=== PATIENT | female | born 1985 | race Caucasian/White ===

== ENCOUNTER 2018-06-19 09:33 | Inpatient (IN) ==
[~2018-06-19 09:33] MED LIST: *HR* Nalbuphine 10 MG/ML AMPUL IVP PRN; Famotidine 20 MG/2 ML VIAL IVP PRN; Lidocaine 1% 20 ML MDV INFILT PRN; Metoclopramide 10 MG/2 ML VIAL IVP PRN; Naloxone 0.4 MG/ML INJ IVP PRN; Ondansetron 4 MG/2 ML VIAL IVP PRN; Penicillin G Potassium 5,000,000 UNIT in D5% in Water (Mini-Bag+) 100 ML IVPB ONE
[2018-06-19] MEDS ORDERED: Ringers Solution, Lactated 1,000 ML IVC SCH (09:45)
[2018-06-19 10:24] LABS: Basophils # 0.1 K/mcL (0.0-0.2); Basophils % 0.6 %; Eosinophils # 0.1 K/mcL (0.0-0.6); Eosinophils % 1.1 %; Hematocrit 30.8 % (35.3-44.9); Hemoglobin 10.3 g/dL (11.5-15.4); Immature Granulocytes % 0.7 % (0-4); Lymphocytes # 2.4 K/mcL (0.6-4.6); Lymphocytes % 19.1 %; Mean Corpuscular HGB Conc 33.4 g/dL (31.6-35.5); Mean Corpuscular Hemoglobin 27.8 pg (28.0-33.3); Mean Corpuscular Volume 83.2 fL (83.0-100.0); Mean Platelet Volume 11.1 fL (9.4-12.4); Monocytes # 0.6 K/mcL (0.0-1.3); Monocytes % 4.6 %; Neutrophils # 9.2 K/mcL (1.6-8.9); Platelet Count 314 K/mcL (140-400); Red Cell Distribution Width 13.9 % (11.5-14.5); Segmented Neutrophils % 73.9 %
--- NOTE | 2018-06-19 10:30 | Anesthesia Evaluation PreOp ---
Addendum entered and electronically signed by Frankie Phillip CRNA 06/19/18 10:59: All Lab Results (24 Hours) 06/19/18 Range/Units 10:00 WBC 12.4 H (4.3-11.1) K/mcL RBC 3.70 L (3.82-4.97) M/mcL Hgb 10.3 L (11.5-15.4) g/dL Hct 30.8 L (35.3-44.9) % MCV 83.2 (83.0-100.0) fL MCH 27.8 L (28.0-33.3) pg MCHC 33.4 (31.6-35.5) g/dL RDW 13.9 (11.5-14.5) % Plt Count 314 (140-400) K/mcL MPV 11.1 (9.4-12.4) fL Immature Gran % 0.7 (0-4) % Seg Neutrophils % 73.9 % Lymphocytes % 19.1 % Monocytes % 4.6 % Eosinophils % 1.1 % Basophils % 0.6 % Neutrophils # 9.2 H (1.6-8.9) K/mcL Lymphocytes # 2.4 (0.6-4.6) K/mcL Monocytes # 0.6 (0.0-1.3) K/mcL Eosinophils # 0.1 (0.0-0.6) K/mcL Basophils # 0.1 (0.0-0.2) K/mcL Original Note: Date of Encounter: 06/19/18 Time of Encounter: 10:25 - Past History Planned Operation: ASHOK Cardiac History: Denies any Significant Hx Pulmonary History: Smoker, Pack/yr (5pk/yr) Other Medical History: GERD Anesthesia History: No Prior Anesthetic Complications, Past Anesthesia (Previous epidural x 2 with blood patch x2. No general anesthetics in history. No family history of anesthesia complications.) : Yes Alcohol Use: none Drug use: opiates, other (subutex use) Medications and Allergies Subutex 8 mg PO BID 06/19/18 [History] Allergy/AdvReac Type Severity Reaction Status Date / Time sulfamethoxazole Allergy Rash Verified 06/19/18 09:27 [From Bactrim] trimethoprim [From Bactrim] Allergy Rash Verified 06/19/18 09:27 - Meds/Allergy Pre-op Review Medications Reviewed: Yes Allergies Reviewed: Yes Beta Blockers on Current Med List: No Anesthesia Exam BP 132/85 P 82 R 16 T 97.6 Height: 5'6" NPO (# of Hours): 85.1kg Pain Scale: 5 Pain Scale Used: Numeric (1 - 10) - HEENT Pupil (Motor): Pupils equal Mallampati: II Teeth: Normal Oral Opening: Greater than 3 - PLUMBING ENGINEERING DRAFTSPERSON LOC: Oriented PLUMBING ENGINEERING DRAFTSPERSON Motor: Normal RUE, Normal LUE, Normal RLE, Normal LLE, Normal Face PLUMBING ENGINEERING DRAFTSPERSON Sensory: Normal: RUE, LUE, RLE, LLE, Face - Cardiac Rhythm: Regular Murmur: None JVD: No Carotid Bruit: No - Pulmonary Breath Sounds: bilateral Clear Respiratory Effort: Symmetrical Anesthesia Assess/Plan ASA Score: 2 Level of consciousness: Cooperative, Oriented, Tranquil Anesthetic Plan: Epidural Autologous Blood: No Monitoring Plan: Standard Monitors Recovery Plan: Other
[2018-06-19] MEDS ORDERED: *HR* FentaNYL (PF) 100 MCG/2 ML VIAL EP ONE (11:01)
[2018-06-19] MEDS ORDERED: Ondansetron 4 MG/2 ML VIAL IVP PRN (11:01)
[2018-06-19] MEDS ORDERED: Naloxone 0.4 MG/ML INJ IVP PRN (11:01)
[2018-06-19] MEDS ORDERED: EPHEDrine 50 MG/ML VIAL IVP PRN (11:01)
[2018-06-19] MEDS ORDERED: *HR* Ropivacaine/PF 0.2% 20 ML VIAL EP ONE (11:01)
[2018-06-19] MEDS ORDERED: *HR* FentaNYL (PF) 100 MCG/2 ML VIAL ONE (11:05)
[2018-06-19] MEDS ORDERED: *HR* Ropivacaine/PF 0.2% 20 ML VIAL ONE (11:06)
[2018-06-19] MEDS ORDERED: Lidocaine -MPF 1% 5 ML AMPUL ONE (11:06)
[2018-06-19] MEDS ORDERED: Epidural Premix (fent/bupiv) 110 ML EP SCH (11:15)
--- NOTE | 2018-06-19 11:48 | Anesthesia Procedures ---
Date of Encounter: 06/19/18 Time of Encounter: 11:13 Procedures: Anesthesia - Epidural/Spinal Patient ID/Chart reviewed: Yes Patient examined: Yes OB Eval: Gestational age: 38 OB Eval: : 6 OB Eval: Hx Para: 5 OB Eval: Dilated at (cm): 5 OB Eval: Contractions: Non-stressed pattern Consent Obtained: Yes Supplemental Oxygen: None/Room Air Site Prep: Aseptic Technique, Sterile prep and drape, Povidone-Iodine 1% Patient position: upright Local Anesthetic: Lidocaine 1% Amount of Local Anesthetic used: 3 Touhy Needle Gauge: 18 Catheter Depth at Skin (cm): 5 Test Dose (1.5% Lido + Epi): Volume given (mls): 3 Test Dose Result: Negative Loading Dose: Fentanyl (mcg): 100 Loading Dose: Other: Ropivicaine 0.2% 5ml NS 2ml Loading Dose Administered: Thru Catheter Infusion Rate (mls/hr): [address]: Tegaderm, Tape Interspace Used: L3-L4 Loss of Resistance (LEENA): Yes Blood: No CSF: No Paresthesia: No Procedure: ASHOK placed 1st pass in upright position. LEENA achieved with normal saline. Catheter threaded with ease to 14cm at skin. VSS throughout. Vitals + FHT's: 1113 BP 115/57 P 79 R 16 1138 BP 124/62 P 75 R 16 FHT 140s
[2018-06-19] MEDS ORDERED: Penicillin G Potassium 2,500,000 UNIT in 0.9 % Sodium Chloride 100 ML IVPB SCH (12:00)
[2018-06-19] MEDS ORDERED: Oxytocin 20 units/ LR 1000 mL 20 UNIT/1,000 ML BAG IVC ONE (12:18)
[2018-06-19 12:57] LABS: Amphetamine Screen,Urine Positive ng/mL (Cutoff=1000); Barbiturate Screen,Urine Negative ng/mL (Cutoff=200); Benzodiazepines Screen,Urine Negative ng/mL (Cutoff=200); Cannabinoid Screen,Urine Negative ng/mL (Cutoff = 50); Cocaine Screen,Urine Negative ng/mL (Cutoff= 300); Opiate Screen,Urine Negative ng/mL (Cutoff=300); Phencyclidine Screen,Urine Negative ng/mL (Cutoff=25)
--- NOTE | 2018-06-19 13:06 | OB/GYN History & Physical ---
Date of Encounter: 06/19/18 Time of Encounter: 13:00 Assessment and Plan (1) 38 weeks gestation of Current visit: Yes Status: Acute (2) Type A blood, Rh negative Current visit: Yes Status: Acute Cord blood to be collected at delivery (3) SROM (spontaneous rupture of membranes) Current visit: Yes Status: Acute Continue to monitor for color changes (4) Intrauterine Current visit: Yes Status: Acute (5) Active labor at term Current visit: Yes Status: Acute Admit to L&D for observation of labor Expectant management Labs-CBC and clot to hold Continuous electronic monitoring Pain management plan is epidural-may have upon request GBS unknown-routine prophylaxis Anticipate Dr. Soni is the OB on-call and is aware of the admission. Available as needed (6) NST (non-stress test) reactive Current visit: Yes Status: Acute History of Present Illness Chief complaint: SROM HPI: Ms. Georges is a 33 year old female at 38 weeks 0 days gestation with an estimated date of of 07/03/18 dated by initial ultrasound which was at 31 weeks. She endorses good movement and denies vaginal bleeding. She presents today with complaint of spontaneous rupture membranes at 7:30 this morning. She reports clear fluid and endorses contractions. Her has been complicated by limited care. She only had a singular visit done at 31 weeks gestation. Other that lives with the midwives. Her records are available electronically and have been reviewed. Labs: A- GBS unknown Hep B- HIV- T. Palladium- GC/CL- Rubella immune Varicella immune Past Med Surg Social Fam HX - Past Medical History Medical history: no medical history Psychiatric history: bipolar - Past Surgical History Surgical History: no surgical history - Social History Smoking Status: Current every day smoker Packs per day: 5-6 cig Smokeless Tobacco Status: No Alcohol use: none Drug use: opiates, other (subutex use) - Family History Mother Adopted: No Living Status: Still Living Hx Family Cardiac Disorders: No Hx Family Respiratory Disorders: No Hx Family Cancer: No Hx Family GI Disorders: No Hx Family Genitourinary Disorders: No Hx Family Endocrine Disorder: No Hx Family Musculoskeletal Disorders: No Hx Family Neuromuscular Disorders: No Hx Family Neurologic Disorders: No Hx Family HEENT Disorders: No Hx Family Autoimmune Disorders: No Hx Family Reproductive Disorders: No Hx Family Psychosocial Disorders: No Hx Family Medical Disorders: No Obstetrical History - Pregnancies : 6 Para: 5 Term: 5 (# 1: 12/22/2000, 40wks, Female, 8lbs 7oz, normal spontaneous vaginal delivery (); # 2: 07/04/2005, 39wks, Male, 7lbs 7oz, normal spontaneous vaginal delivery (); # 3 07/29/2007, 39wks, Male, 6lbs 9oz, normal spontaneous vaginal delivery (); # 4: 07/30/2012, 39wks, Female, 7lbs 6oz, normal spontaneous vaginal delivery (); # 5: 10/27/2014, 39wks, Female, 7lbs 3oz, normal spontaneous vaginal delivery (). ) : 0 Ab's: 0 Livin Medications and Allergies Subutex 8 mg PO BID 06/19/18 [History] Allergy/AdvReac Type Severity Reaction Status Date / Time sulfamethoxazole Allergy Rash Verified 06/19/18 09:27 [From Bactrim] trimethoprim [From Bactrim] Allergy Rash Verified 06/19/18 09:27 Review of System OB All systems PM: reviewed and no additional remarkable complaints except as stated Exam - Constitutional Constitutional: well developed, well nourished, moderate distress, obese - HEENT HEENT: PERRL, Normocephaly, Mucus Membranes Moist - Neck Neck exam: full ROM - Lungs Respiratory exam: CTAB - Cardiovascular Cardiovascular exam: RRR, +S1, +S2 - Breasts Breast: bilateral: normal - Abdomen Abdomen: Present: bowel sounds normal, gravid, non tender - Extremities Extremities exam: normal capillary refill, normal inspection, radial pulses palpable and symmetrical - Vulva Vulva: bilateral: normal - Vagina Vagina: Present: normal moisture - Cervix Dilation: 5 (per rn) Effacement: 80 Station: -2 - Uterus Uterus exam: Present: normal size, normal contour - Adnexa Adnexa: bilateral: normal - Anus/Rectum Anus/Rectum: Present: normal perianal skin Results Result Diagrams: 06/19/18 10:00 Abnormal lab results WBC 12.4 K/mcL (4.3-11.1) H 06/19/18 10:00 RBC 3.70 M/mcL (3.82-4.97) L 06/19/18 10:00 Hgb 10.3 g/dL (11.5-15.4) L 06/19/18 10:00 Hct 30.8 % (35.3-44.9) L 06/19/18 10:00 MCH 27.8 pg (28.0-33.3) L 06/19/18 10:00 Neutrophils # 9.2 K/mcL (1.6-8.9) H 06/19/18 10:00 Ur Amphetamines Screen Positive ng/mL ([id number]) H 06/19/18 12:10 All other labs normal. - VTE Reasons for not Prescribing Prophylaxis: Treatment not Indicated - Low risk for VTE
--- NOTE | 2018-06-19 13:26 | OB/GYN Procedure Note ---
Delivery - Delivery Date: 06/19/18 Provider: Gertrude Urbina Intrapartum events: none Delivery induction: none Delivery monitor: external FHT, external uterine Anesthesia: epidural Quantitated Blood Loss: 450 - (s) Infant A Delivery Date: 06/19/18 Delivery Time: 12:32 Presentation: vertex Position: OA Route of delivery: Gender: Female Viability: Viable Pounds: 7 Ounces: 12 Weight Gram: 3.505 kg at 1 minute: 8 at 5 mins: 9 Shoulder Dystocia: not encountered Specimens collected: cord blood Placenta: spontaneous Cord: 3 umbilical vessels - Repair Episiotomy: none Laceration Description: None - Complications Delivery complications: none Delivery comments: This is a 33 year old G6 now P6006 who was admitted for spontaneous rupture of membranes and active labor. She progressed spontaneously to the second stage of labor. She pushed for about 15 minutes. She delivered a viable, female , OA "Tina" over an intact perineum. A nuchal cord was not identified. A shoulder dystocia was not encountered. The infant was placed on the maternal abdomen and allowed to transition spontaneously. The cord was double clamped by senior account executive after pulsations ceased and cut by FOB. scores were 8 at 1 minute and 9 at 5 minutes. The infant weighed 7 lbs. 12 oz. (3505 g). The placented delivered spontaneously, intact (Yee) with a 3-vessel cord. Inspection revealed an intact perineum. The uterus was firm with no active bleeding. EBL was 450 mL. Placenta and umbilical artery blood gases were not sent. There were no complications during the procedure. Mom and baby are skin to skin following delivery. - Disposition Mom disposition: stable in LDR disposition: stable in LDR
[2018-06-19] MEDS ORDERED: Rho Immune Globulin 1,500 UNIT SYRINGE IM PRN (14:17)
[2018-06-19] MEDS ORDERED: Acetaminophen 325 MG TABLET PO PRN (14:17)
[2018-06-19] MEDS ORDERED: Oxytocin 20 units/ LR 1000 mL 20 UNIT/1,000 ML BAG IVC SCH (14:17)
[2018-06-19] MEDS: Ibuprofen 600 MG TABLET PO PRN (16:49)
[2018-06-19] MEDS ORDERED: *HR* Buprenorphine HCl 8 MG TAB.SUBL SL SCH (21:00)
[2018-06-20 05:56] LABS: Basophils # 0.1 K/mcL (0.0-0.2); Basophils % 0.5 %; Eosinophils # 0.3 K/mcL (0.0-0.6); Eosinophils % 2.3 %; Hematocrit 25.5 % (35.3-44.9); Immature Granulocytes % 0.6 % (0-4); Lymphocytes # 4.3 K/mcL (0.6-4.6); Lymphocytes % 29.6 %; Mean Corpuscular HGB Conc 32.5 g/dL (31.6-35.5); Mean Corpuscular Volume 86.1 fL (83.0-100.0); Mean Platelet Volume 11.3 fL (9.4-12.4); Monocytes # 0.9 K/mcL (0.0-1.3); Monocytes % 5.8 %; Neutrophils # 8.9 K/mcL (1.6-8.9); Nucleated Red Blood Cells 0.1 /100 WBC (0); Platelet Count 275 K/mcL (140-400); Red Blood Count 2.96 M/mcL (3.82-4.97); Red Cell Distribution Width 13.8 % (11.5-14.5); Segmented Neutrophils % 61.2 %
[2018-06-20 05:58] LABS: Hemoglobin 8.3 g/dL (11.5-15.4)
[2018-06-20 08:52] VITALS: BP 116/70
[2018-06-20] MEDS: Ibuprofen 600 MG TABLET PO PRN (08:52)
[2018-06-20] MEDS ORDERED: Prenatal Vit/FA 1 EACH TABLET PO SCH (09:00)
--- NOTE | 2018-06-20 10:11 | Discharge Summary ---
Date of Encounter: 06/20/18 Time of Encounter: 10:09 - Discharge Diagnosis (1) Status post vaginal delivery Priority: Primary Status: Acute Comments: Patient meeting PPD1 milestones. Reports pain managed by Motrin. Anticipate discharge home today. (2) Breast feeding status of mother Priority: Secondary Status: Acute Comments: Continues to work on direct . Patient denies pain with latch. No concerns or questions at this time. Rx for breast pump given. (3) Tobacco abuse Priority: Secondary Status: Acute Comments: Discussed smoking cessation with patient. Patient denies being ready to quit. Discussed effects of 2nd and 3rd hand smoke on . Mom verbalized understanding. (4) Type A blood, Rh negative Priority: Secondary Status: Acute Comments: Patient received Rhogam PP. (5) Contraception management Priority: Secondary Status: Acute Comments: Discussed control options and safe spacing. Patient has used Depo in the past and desires Depo today. She is considering an IUD at her PP appointment. Qualifiers: Contraceptive encounter type: initial prescription Contraceptive type: injectable Qualified Code(s): Z30.013 - Encounter for initial prescription of injectable contraceptive (6) History of drug abuse Priority: Secondary Status: Acute Comments: Patient reports a history of Percocet abuse. Patient reports she has been on Suboxone for almost 5 years. She [facility] [place] and filling the Rx in [place]. I was unable to verify a Rx on [facility]; patient confirmed that Amparo Georges is the name on her Suboxone Rx and stated that her s/o would bring the bottle but he never did. Nursery notified pt is likely taking subutex from off the street. - Discharge Medications Prescriptions: New RX: Ferrous Sulfate 325 mg PO DAILY #60 tablet RX: Ibuprofen [Motrin] 600 mg PO Q6HR PRN #60 tablet PRN Reason: Cramping RX: Docusate [Colace] 100 mg PO BID #60 capsule RX: Breast Pump [BREAST PUMP] 1 each .ROUTE AD #1 each Continue Subutex 8 mg PO BID Home Medications: Subutex 8 mg PO BID 06/19/18 [History] RX: Breast Pump [BREAST PUMP] 1 each .ROUTE AD #1 each 06/20/18 [Rx] RX: Docusate [Colace] 100 mg PO BID #60 capsule 06/20/18 [Rx] RX: Ferrous Sulfate 325 mg PO DAILY #60 tablet 06/20/18 [Rx] RX: Ibuprofen [Motrin] 600 mg PO Q6HR PRN #60 tablet 06/20/18 [Rx] Allergies/Adverse Reactions: Allergy/AdvReac Type Severity Reaction Status Date / Time sulfamethoxazole Allergy Rash Verified 06/19/18 09:27 [From Bactrim] trimethoprim [From Bactrim] Allergy Rash Verified 06/19/18 09:27 Data Procedures and tests throughout hospitalization: Laboratory Tests 06/19/18 06/19/18 06/19/18 10:00 12:10 13:50 WBC 12.4 H RBC 3.70 L Hgb 10.3 L Hct 30.8 L MCV 83.2 MCH 27.8 L MCHC 33.4 RDW 13.9 Plt Count 314 MPV 11.1 Immature Gran % 0.7 Seg Neutrophils % 73.9 Lymphocytes % 19.1 Monocytes % 4.6 Eosinophils % 1.1 Basophils % 0.6 Neutrophils # 9.2 H Lymphocytes # 2.4 Monocytes # 0.6 Eosinophils # 0.1 Basophils # 0.1 Nucleated RBCs/100 WBC Urine Opiates Screen Negative Ur Barbiturates Screen Negative Ur Phencyclidine Scrn Negative Ur Amphetamines Screen Positive H U Benzodiazepines Scrn Negative Urine Cocaine Screen Negative U Marijuana (THC) Screen Negative Ur Drug Screen Interp See Below Screen NEGATIVE Baby's Blood Type A RH POSITIVE Mother's Blood Type A RH NEGATIVE Rhogam Indicated YES Rhogam Req for Mother 1 06/20/18 05:12 WBC 14.5 H RBC 2.96 L Hgb 8.3 L D Hct 25.5 L MCV 86.1 MCH 28.0 MCHC 32.5 RDW 13.8 Plt Count 275 MPV 11.3 Immature Gran % 0.6 Seg Neutrophils % 61.2 Lymphocytes % 29.6 Monocytes % 5.8 Eosinophils % 2.3 Basophils % 0.5 Neutrophils # 8.9 Lymphocytes # 4.3 Monocytes # 0.9 Eosinophils # 0.3 Basophils # 0.1 Nucleated RBCs/100 WBC 0.1 H Urine Opiates Screen Ur Barbiturates Screen Ur Phencyclidine Scrn Ur Amphetamines Screen U Benzodiazepines Scrn Urine Cocaine Screen U Marijuana (THC) Screen Ur Drug Screen Interp Screen Baby's Blood Type Mother's Blood Type Rhogam Indicated Rhogam Req for Mother Labs on day of discharge: Labs from last 24 hours 06/20/18 06/19/18 06/19/18 05:12 13:50 12:10 WBC 14.5 H RBC 2.96 L Hgb 8.3 L D Hct 25.5 L MCV 86.1 MCH 28.0 MCHC 32.5 RDW 13.8 Plt Count 275 MPV 11.3 Immature Gran % 0.6 Seg Neutrophils % 61.2 Lymphocytes % 29.6 Monocytes % 5.8 Eosinophils % 2.3 Basophils % 0.5 Neutrophils # 8.9 Lymphocytes # 4.3 Monocytes # 0.9 Eosinophils # 0.3 Basophils # 0.1 Nucleated RBCs/100 WBC 0.1 H Urine Opiates Screen Negative Ur Barbiturates Screen Negative Ur Phencyclidine Scrn Negative Ur Amphetamines Screen Positive H U Benzodiazepines Scrn Negative Urine Cocaine Screen Negative U Marijuana (THC) Screen Negative Ur Drug Screen Interp See Below Screen NEGATIVE Baby's Blood Type A RH POSITIVE Mother's Blood Type A RH NEGATIVE Rhogam Indicated YES Rhogam Req for Mother 1 06/19/18 10:00 WBC 12.4 H RBC 3.70 L Hgb 10.3 L Hct 30.8 L MCV 83.2 MCH 27.8 L MCHC 33.4 RDW 13.9 Plt Count 314 MPV 11.1 Immature Gran % 0.7 Seg Neutrophils % 73.9 Lymphocytes % 19.1 Monocytes % 4.6 Eosinophils % 1.1 Basophils % 0.6 Neutrophils # 9.2 H Lymphocytes # 2.4 Monocytes # 0.6 Eosinophils # 0.1 Basophils # 0.1 Nucleated RBCs/100 WBC Urine Opiates Screen Ur Barbiturates Screen Ur Phencyclidine Scrn Ur Amphetamines Screen U Benzodiazepines Scrn Urine Cocaine Screen U Marijuana (THC) Screen Ur Drug Screen Interp Screen Baby's Blood Type Mother's Blood Type Rhogam Indicated Rhogam Req for Mother Date of admission: 06/19/18 09:33 Primary care physician: PCP NONE Consults: 06/19/18 14:17 Consult to Manager Outreach [CONS] Routine Comment: Vaginal delivery, consult needed Consult to Safety Lead [CONS] Routine Reason for SW Consult: no pnc; hx of drug use 06/19/18 16:20 Consult to Safety Lead (W&C) [CONS] Routine Reason For Exam: Reason for SW Consult: meth use this (family does not know), in [place] [facility], only had 1 visit at 31 weeks 3 days Discharging clinician: Soraya Krishnan Anticipated date of discharge: 06/20/18 - Patient Status Disposition: Home, Self-Care Condition: Good Overall status at discharge: patient is progressing back to baseline - Discharge Instructions Follow Up With: NONE,PCP [Primary Care Provider] - Soraya Krishnan, CNM [Non-Partnered Physician] - - Diet and Activity Activity: increase activity as tolerated Diet: advance to your usual diet Hospital Course Reason for admission: active labor, rupture of membranes, IUP at term Delivery: Episiotomy: none Laceration: none Other procedures: none complications: none Discharge diagnosis: IUP at term delivered baby: female Hospital course: Delivery Date: 06/19/18 Provider: Gertrude Urbina Intrapartum events: none Delivery induction: none Delivery monitor: external FHT, external uterine Anesthesia: epidural Quantitated Blood Loss: 450 - (s) Infant A Delivery Date: 06/19/18 Delivery Time: 12:32 Presentation: vertex Position: OA Route of delivery: Gender: Female Viability: Viable Pounds: 7 Ounces: 12 Weight Gram: 3.505 kg at 1 minute: 8 at 5 mins: 9 Shoulder Dystocia: not encountered Specimens collected: cord blood Placenta: spontaneous Cord: 3 umbilical vessels - Repair Episiotomy: none Laceration Description: None - Complications Delivery complications: none Delivery comments: This is a 33 year old G6 now P6006 who was admitted for spontaneous rupture of membranes and active labor. She progressed spontaneously to the second stage of labor. She pushed for about 15 minutes. She delivered a viable, female infant, OA "Tina" over an intact perineum. A nuchal cord was not identified. A shoulder dystocia was not encountered. The was placed on the maternal abdomen and allowed to transition spontaneously. The cord was double clamped by pressfitter after pulsations ceased and cut by FOB. scores were 8 at 1 minute and 9 at 5 minutes. The weighed 7 lbs. 12 oz. (3505 g). The placented delivered spontaneously, intact (Joselito) with a 3-vessel cord. Inspection revealed an intact perineum. The uterus was firm with no active bleeding. EBL was 450 mL. Placenta and umbilical artery blood gases were not sent. There were no complications during the procedure. Mom and baby are skin to skin following delivery. - Disposition Mom disposition: stable in LDR disposition: stable in LDR Time spent discussing smoking cessation with patient: 3 to 10 minutes Time Attestation: Total time spent providing and/or coordinating discharge services: Time Spent: Less than 30 minutes Exam - Constitutional Vitals: Temp Pulse Resp BP Pulse Ox 98.1 F 69 14 116/70 98 06/20/18 08:51 06/20/18 08:51 06/20/18 08:51 06/20/18 08:51 06/20/18 08:51 General appearance IM: A&O X 3, no acute distress - Respiratory Respiratory exam: Present: CTAB - Cardiovascular Cardiovascular exam IM: Present: RRR, +S1, +S2 - GI/Abdominal GI/Abdominal exam IM: normal bowel sounds, soft, no peritoneal signs - Uterine Tone: Firm Uterus Position: 1 Finger Below Umbilicus, Midline - Extremities Exam Extremities exam IM: Present: pedal edema (1+ edema ). Absent: calf tenderness - Neurological Exam Neurological exam: alert, oriented X3, reflexes normal - Psychiatric Additional comments: reports good mood.
== END 2018-06-20 13:00 | disposition home or self-care (01) | DRG 560 ==
LOC: 1NENULAB → 1NENUOBS 15:45
PROVIDERS: ADMIT Advanced Practice Midwife; ATTEND Advanced Practice Midwife